=== PATIENT | female | born 1985 | race African-American/Black ===

== ENCOUNTER 2016-05-30 20:12 | Emergency (ER) | payer SELFPAY ==
--- NOTE | ~2016-05-30 | CR72 ---
[facility] A Service of [facility] & [facility] RADIOLOGY TEXT RESULTS PATIENT: NAKUL PACHECO LOCATION: [facility] : 81 UNIT #: [id number] AGE: [address]: Nevin Nolan MD SEX: F ORDER DR: [id number] [facility] [address] [place], [place] [address] [id number] MR#: [id number] #: [id number] NAME: NAKUL PACHECO : 1985 SEX: F STUDY DATE/TIME: 05/30/2016 19:59 UNIT: [facility] ROOM: STUDY DESCRIPTION: CR Chest Single View Portable Attending Physician: Nevin Nolan M.D. Ordering Physician: Nevin Nolan M.D. Primary Care Physician: No Primary Care Physician MEDICAL IMAGING REPORT This report is preliminary unless electronic signature is present EXAM Chest x-ray single view portable HISTORY Dysphagia, chest pain, upper back pain symptoms for 5 days, no injury COMMENT Single frontal portable view of the chest timed 1859 on 05/30/2016 compared to 11/24/2013 Heart size is top normal. Small amount of obscuration of the medial right hemidiaphragm noted new from prior possibly a small amount of airspace disease at the medial right lung base. Please correlate clinically. Consider correlation with 2-view chest x-ray otherwise no pleural effusion or pneumothorax. No congestive failure. IMPRESSION There is new obscuration of the medial right hemidiaphragm on comparison to prior study. This could be due to a small amount of airspace disease in the right lower lobe and consider correlation with a 2-view chest x-ray in followup. Otherwise no active disease is seen in the chest. No other change on comparison to study from 11/24/2013. Dictated by... Na Enriquez M.D. THIS IS AN ELECTRONICALLY VERIFIED REPORT Na Enriquez M.D. at 05/31/2016 12:58 PM SAC/bd TD: 05/31/2016 10:46 [facility] A Service of [facility] & [facility] RADIOLOGY TEXT RESULTS PATIENT: NAKUL PACHECO [id number] : [birth year] UNIT #: [id number] AGE: [address]: Nevin Nolan MD SEX: F ORDER DR: JOB #: [id number] MEDICAL IMAGING REPORT COPY
--- NOTE | ~2016-05-30 | EKG ---
PATIENT: NAKUL PACHECO UNIT #: [id number] Ventricular Rate: 76 BPM Atrial Rate: 76 BPM P-R Interval: 146 ms QRS Duration: 76 ms Q-T Interval: 402 ms QTC Calculation(Bezet): 452 ms P [place]: 77 degrees Calculated R [place]: 56 degrees Calculated T [place]: 13 degrees Diagnosis Line: Normal sinus rhythm with sinus arrhythmia Diagnosis Line: Normal ECG Diagnosis Line: No previous ECGs available Diagnosis Line: Confirmed by KRIS AGUILAR MD ([id number]) on 05/31/2016 Diagnosis Line: 5:43:38 PM INTERPRETING MD: LAUREN DENT
[2016-05-30 19:57] LABS: BASOPHIL% 0.5 % (0-2.5); DIFF IND NO; EOSINOPHIL# 0.1 X10e3 (0-0.7); EOSINOPHIL% 1.2 % (0.0-7.0); HEMATOCRIT 47.4 % (35.0-45.0); HEMOGLOBIN 15.2 gm/dL (12.0-16.0); LYMPHOCYTE% 33.9 % (17.0-45.0); MEAN CELL VOLUME 98.4 FL (83-96); MEAN CORPUSCULAR HEMOGLOBIN 31.6 PG (28-34); MEAN CORPUSCULAR HGB CONC 32.1 g/dL (30-36); MEAN PLATELET VOLUME 8.5 FL (6.5-11.5); MONOCYTE# 0.5 X10e3 (0-1.0); MONOCYTE% 8.4 % (3.0-12.0); NEUTROPHIL# 3.4 X10e3 (1.5-7.1); PLATELET COUNT 214 X10e3 (140-420); RED BLOOD COUNT 4.82 X10e (3.90-5.30); RED CELL DISTRIBUTION WIDTH 14.3 % (11.0-15.5)
[2016-05-30 20:03] LABS: POC - CKMB <1.0 ng/mL (0.0-7.9); POC - TROPONIN <0.05 ng/mL (<=0.05)
[~2016-05-30 20:12] MED LIST: ALBUTEROL17 GM INH; ANAPROX DS550 M1 PO; IBUPROFEN800 MG PO; PHENERGAN25 MG PO; PREDNISONE PO; PREDNISONE10 MG PO
[2016-05-30 20:36] LABS: BLOOD UREA NITROGEN 11 mg/dL (9-23); BUN/CREATININE RATIO 12.22; CALCIUM SERUM 9.4 mg/dL (8.4-10.2); CARBON DIOXIDE 24 mmol/L (22-31); CHLORIDE 105 mmol/L (100-111); CREATININE SERUM 0.9 mg/dL (0.6-1.4); GLOM FILT RATE Estimated ABOVE60 mL/min (>60); GLUCOSE FASTING 80 mg/dL (70-110); POTASSIUM 4.1 mmol/L (3.5-5.1); SODIUM 137 mmol/L (135-145)
== END 2016-05-30 21:30 | disposition home or self-care (01) ==
LOC: CED 20:12
PROVIDERS: Emergency Medicine
DX: R07.89 Other chest pain (principal)
CPT/HCPCS: 36415; 71010; 80048; 82553; 84484; 85025; 93005; 99284